=== PATIENT | female | born 1995 | race Caucasian/White ===

== ENCOUNTER → 2024-08-01 | Outpatient (CLI) | payer MEDICAID, SELFPAY ==
--- NOTE | 2024-08-01 09:03 | XR_ITS ---
Examination: Foot, right, 3 views Technique: AP, oblique, lateral views foot, 3 views Date and time of exam: August 01, 2024 0909 hours INDICATIONS: Injury to the foot 2 days ago with persistent pain. FINDINGS: Mild osteopenia No acute fracture No dislocation No foreign body IMPRESSION: No acute fracture
== END | disposition home or self-care (01) ==
PROVIDERS: PCP Family Medicine; Referring Provider Orthopaedic Surgery; Visit Provider Orthopaedic Surgery
DX: S99.921A Unspecified injury of right foot, initial encounter (principal); X58.XXXA Exposure to other specified factors, initial encounter
CPT/HCPCS: 73630

== ENCOUNTER 2024-08-03 21:11 | Emergency (ER) | payer MEDICAID, SELFPAY ==
[2024-08-03 21:12] VITALS: BMI 25.4
[2024-08-03 21:53] VITALS: BP 132/91; PULSE 66; RESP 16; TEMP 36.8; O2SAT 99
--- NOTE | 2024-08-03 22:12 | XR_ITS ---
Examination: CT right foot, without contrast. 2-D sagittal reconstructions. 2-D coronal reconstructions. 3-D reconstructions. Date and time of exam:August 03, 2024 and 4:00 PM Indications: Injury to the foot 2 days ago, foot pain CTDI: vol (mGy):4.80 DLP: (mGycm):130 Technique: Multiple 1.25 mm axial sections of the right foot without intravenous contrast have been obtained. 2-D sagittal and coronal reconstructions have been obtained. 3-D reconstructions have been obtained. Low dose protocols were performed. One or more of the following dose reduction techniques were used; automated exposure control, adjustment of the mA and/or KV according to patient size, use of iterative reconstruction technique. Findings: Distal tibia and distal fibula intact Talus calcaneus navicular and cuneiforms, cuboid intact No Lisfranc tarsometatarsal dislocations Metatarsals digits appear intact Impression: No acute fracture MRI foot without contrast follow-up would best assess for bone contusion, marrow edema, ligamentous, tendon injuries, as clinically warranted
--- NOTE | 2024-08-03 22:19 | PD.EDANKLE ---
Lower Extremity Injury RME/HPI General Chief Complaint: Ankle/Foot Injury Stated Complaint: RIGHT FOOT PAIN Time Seen by Provider: 08/03/24 22:11 Arrival date/time: 08/03/24 21:11 29F with history of asthma presents to ED with R sole pain after she stepped on a toy several days ago. XR done here was normal. Limitations: no limitations Related Data Home Medications ?Medication ?Instructions ?Recorded ?Confirmed prenat.vits,blanca,rlx-[id number]-[id number] 1 tab PO QDAY 02/03/22 02/03/22 Previous Rx's ?Medication ?Instructions ?Recorded albuterol sulfate 90 mcg/actuation 2 puff inhalation Q6HR PRN 08/02/17 aerosol inhaler (Proventil HFA) SHORTNESS OF BREATH OR WHEEZE #1 inh inhalational spacing device #1 ea 03/08/19 (Aerochamber MV spacer) ibuprofen 800 mg tablet 800 mg PO Q8H PRN pain #30 tabs 02/15/22 Allergies Allergy/AdvReac Type Severity Reaction Status Date / Time No Known Allergies Allergy Verified 02/14/22 04:34 Review of Systems Review of Systems Systems Reviewed: All systems reviewed, normal except as documented Constitutional Constitutional: Reports system reviewed and no additional complaints, except as documented, Denies fever(s) and Denies headache(s) ENT Ears, Nose, Mouth, and Throat: Denies disequilibrium and Denies headache(s) Cardiovascular Cardiovascular: Reports system reviewed and no additional complaints, except as documented, Denies chest pain and Denies dyspnea Respiratory Respiratory: Reports system reviewed and no additional complaints, except as documented, Denies cough and Denies dyspnea Gastrointestinal Gastrointestinal: Reports system reviewed and no additional complaints, except as documented, Denies abdominal pain, Denies nausea and Denies vomiting Musculoskeletal Musculoskeletal: Reports as per HPI and Reports arthralgias Neurologic Neurologic: Reports system reviewed and no additional complaints, except as documented, Denies confusion, Denies disequilibrium and Denies headache(s) Psychiatric Psychiatric: Denies confusion Past Medical History Past Medical History NEUROLOGIC: Negative Neurological Disorders CARDIAC: Negative Cardiac Disorders or Congestive Heart Failure RESPIRATORY: Positive Asthma (INHALER LAST USED 1 YEAR AGO.); Negative Chronic Obstructive Pulmonary Disease (COPD) GASTROINTESTINAL: Negative Gastrointestinal Disorders or Hepatitis GENITOURINARY: Negative Genitourinary Disorders or Renal Disease MUSCULOSKELETAL: Negative Musculoskeletal Disorders ENDOCRINE: Negative Endocrine Disorders, Diabetes Mellitus Type 1 or Diabetes Mellitus Type 2 HEMATOLOGIC: Positive Blood Disorders and Anemia OTHER HISTORY: Positive Hospitalization (CHILDBIRTH) and Blood Transfusions; Negative Autoimmune Disease, Down Syndrome, Developmental Delay, Shingles, Falls, MRSA, VRSA, Vancomycin-Resistant Enterococci, Human Immunodeficiency Virus (HIV), Chicken Pox, Measles, Mumps, Rubella (Cam[place]onian Measles), Pertussis, Clostridium Difficile or Cancer Family History FAMILY HISTORY: Positive Family Cardiac Disorders (MATERNAL GF- HEART ILLNESS.) and Family Surgery (MATERNAL GF-HEART SURGERY, MOTHER-HYSTERECTOMY); Negative Family Psychiatric Problems, Family Respiratory Disorders, Family Gastrointestinal Problems, Family Cancer or Family Anesthesia Reaction Surgical History SURGICAL: Positive Tonsillectomy; Negative Neurologic Surgery Social History SMOKING STATUS: Never smoker SECOND HAND EXPOSURE: No ED Exam General Limitations: Present no limitations General appearance: Present alert and in no apparent distress Head Head exam: Present atraumatic Eye Eye exam: Present normal appearance, PERRL and EOMI ENT ENT exam: Present normal exam, normal oropharynx and mucous membranes moist Neck Neck exam: Present normal inspection, full ROM and trachea midline Chest Chest inspection: Present normal inspection and symmetric chest wall rise Respiratory Respiratory exam: Present normal lung sounds bilaterally Cardiovascular Cardiovascular exam: Present regular rate, normal rhythm and normal heart sounds Abdominal Exam Abdominal exam: Present soft and normal bowel sounds Extremities Exam Extremities exam: Present full ROM Expanded Lower Extremity Exam Foot/toe exam: Present full ROM (R sole), tenderness, swelling and ecchymosis Back Exam Back exam: Present normal inspection and full ROM Neurological Exam Neurological exam: Present alert, oriented X3 and CN II-XII intact Psychiatric Psychiatric exam: Present normal affect and normal mood Skin Skin exam: Present warm, dry, intact and normal color Course Quality Measures none Orders Category Date Time Status tea wrap [Splint / Immobilizer] STAT Care 08/03/24 22:15 Active Consult to Orthopedic Stat Cons 08/03/24 23:[address] foot RT wo con Stat Exams 08/03/24 22:12 Completed HYDROcodone*/APAP 5/325 [[place] 5/325] Med 08/03/24 22:12 Discontinued 0.5 tab PO X1 ONE Vital Signs Vital signs: Vital Signs Temperature 98.2 F 08/03/24 21:53 Pulse Rate 66 08/03/24 21:53 Respiratory Rate 16 08/03/24 21:53 Blood Pressure 132/91 H 08/03/24 21:53 Pulse Oximetry (%) 99 08/03/24 21:53 Oxygen Delivery Method Room Air 08/03/24 21:53 O2 at 99% on RA and WNLs Extremity Injury, Lower MDM Narrative MDM Narrative:: 29F with history of asthma presents to ED with R sole pain after she stepped on a toy several days ago. XR done here was normal. Physical exam reveals R sole bruising and swelling around mid-foot. Skin in intact. ROM intact. Patient is afebrile, calm, and alert. CT no acute abnormalities. [place] reduced pain. Dr. Jaffe came to evaluate patient and recommends MRI outpatient. Patient data External records reviewed:: [facility] previous records Clinical information provided by:: patient Social determinants that could affect healthcare access:: none Patient has the following chronic illnesses:: none How is presenting disease/condition affected by chronic disease/condition?: no chronic disease Evaluation data The following diagnostics were reviewed and interpreted by me:: radiology exam(s) Lab and/or radiology exams considered but not ordered:: ordered Interpretation Summary: above Medications / Prescriptions Medications or Prescriptions considered but not ordered:: ordered Medication administrations:: Medication Administration History Discontinued Medications Hydrocodone Bitart/Acetaminophen (Hydrocodone/Apap 5/325 Tablet) 0.5 tab PO X1 ONE Stop: 08/03/24 22:13 Last Admin: 08/03/24 22:30 Dose: 0.5 tab Documented By: above Consultations Consultation(s) initiated? (list below): Yes Diagnosis Extremity Injury, Lower Differential Diagnosis: ankle sprain and strain, acute internal derangement of knee, puncture wound of foot, fracture of toe, ankle fracture and other (traumatic bruising of foot) Most likely diagnosis given after review of the tests above:: traumatic bruising of foot Admission Indicated Admission indicated?: not indicated Admission Request Was there a request for admission?: No Disposition Plan Disposition Plan: Discharge Discharge Attestation Discharge Attestation: The patient and all family members were given an opportunity to ask questions and understood the discharge instructions. Discharge instructions specifically effects, indications for sooner follow up or return to the emergency department, and the expected course of current diagnosis. Patient condition: Stable Discharge Plan Plan Patient Disposition: HOME (Self Care) Disposition Comment: Stable Prescriptions/Referrals Prescriptions/Med Rec: No Action (DME) Aerochamber MV spacer See Dose Instructions .ROUTE .MEDSUPPLY Qty: 1 0RF Dose Instruction: As directed Rx Instructions: As directed albuterol sulfate [Proventil HFA] 6.7 GM HFA aerosol inhaler 2 puff Inhalation Q6HR PRN (Reason: SHORTNESS OF BREATH OR WHEEZE) Qty: 1 0RF prenat.vits,blanca,[id number] Tablet 1 tab PO QDAY ibuprofen 800 mg tablet 800 mg PO Q8H PRN (Reason: pain) Qty: 30 0RF Referrals: Temporary Provider,ED [Primary Care Provider] - In 1 week Problem List Clinical Impression: Traumatic ecchymosis of foot Patient/Caregiver Discharge Instructions Education Materials: ED Foot Contusion Additional Instructions: Please follow-up with PCP within 24-48 hours and return immediately if symptoms worsen. If problem persists, recommend outpatient PT and/or MRI follow-up. In the meantime, rest, use ice/heat, and/or compression. Print Language: Luxembourger Stand Alone Forms: Patient Portal Info Letter MARTY/URI Supervising Physician MARTY/URI Supervising Physician: Dr. Fry
[2024-08-03] MEDS: HYDROcodone/APAP 5/325 TABLET 0.5 TAB PO (22:30)
--- NOTE | 2024-08-03 22:49 | PD.ORTHCON ---
HPI Consult details Reason for consultation narrative: Pain right foot History of present illness: Patient 29-year-old who several days ago stepped on a toy. She does not really remember the event and awakened the next morning with pain and swelling plantar aspect right foot. She was seen in the office and given a prescription for tramadol. The tramadol 1/2 tablet is not effective even when she takes a whole tablet she is quite nauseated. She has been quite active. We did dispense a boot in the office and that has helped. Past Medical History Past Medical History NEUROLOGIC: Negative Neurological Disorders CARDIAC: Negative Cardiac Disorders or Congestive Heart Failure RESPIRATORY: Positive Asthma (INHALER LAST USED 1 YEAR AGO.); Negative Chronic Obstructive Pulmonary Disease (COPD) GASTROINTESTINAL: Negative Gastrointestinal Disorders or Hepatitis GENITOURINARY: Negative Genitourinary Disorders or Renal Disease MUSCULOSKELETAL: Negative Musculoskeletal Disorders ENDOCRINE: Negative Endocrine Disorders, Diabetes Mellitus Type 1 or Diabetes Mellitus Type 2 HEMATOLOGIC: Positive Blood Disorders and Anemia OTHER HISTORY: Positive Hospitalization (CHILDBIRTH) and Blood Transfusions; Negative Autoimmune Disease, Down Syndrome, Developmental Delay, Shingles, Falls, MRSA, VRSA, Vancomycin-Resistant Enterococci, Human Immunodeficiency Virus (HIV), Chicken Pox, Measles, Mumps, Rubella ([place]ian Measles), Pertussis, Clostridium Difficile or Cancer Family History FAMILY HISTORY: Positive Family Cardiac Disorders (MATERNAL GF- HEART ILLNESS.) and Family Surgery (MATERNAL GF-HEART SURGERY, MOTHER-HYSTERECTOMY); Negative Family Psychiatric Problems, Family Respiratory Disorders, Family Gastrointestinal Problems, Family Cancer or Family Anesthesia Reaction Surgical History SURGICAL: Positive Tonsillectomy; Negative Neurologic Surgery Social History SMOKING STATUS: Never smoker SECOND HAND EXPOSURE: No Meds Home Medications and Allergies Home Medications ?Medication ?Instructions ?Recorded ?Confirmed ?Type prenat.vits,blanca,[id number] 1 tab PO QDAY 02/03/22 02/03/22 History Allergies Allergy/AdvReac Type Severity Reaction Status Date / Time No Known Allergies Allergy Verified 02/14/22 04:34 Exam Vital Signs Temp Pulse Resp BP Pulse Ox O2 Del Method 98.2 F 66 16 132/91 H 99 Room Air 08/03/24 21:53 08/03/24 21:53 08/03/24 21:53 08/03/24 21:53 08/03/24 21:53 08/03/24 21:53 Vital signs stable Narrative Exam Physical examination shows slight increased area of ecchymosis. No redness or heat indicative of possible cellulitis. Has some pain with flexion extension right ankle right foot and toes. Good capillary filling noted Sensation intact Assessment & Plan Additional Assessment Additional comments: CT scan was done and there appears to be some swelling in the area of the plantar fascia on the plantar aspect soft tissue. I do not see any fractures. No evidence of osteomyelitis. Plan If she does not get better it would be great to get an MRI scan I think this will be self-limited. Keep it up and elevated. Would recommend prescription for Zofran. Have her follow up with me in office.
== END 2024-08-04 00:19 | disposition home or self-care (01) ==
LOC: SERX 08-04 04:54
PROVIDERS: Emergency Provider Emergency Medicine; PCP Family Medicine
DX: S90.31XA Contusion of right foot, initial encounter (principal); W22.8XXA Striking against or struck by other objects, initial encounter
CPT/HCPCS: 73700; 99284; A9270

== ENCOUNTER 2024-08-04 08:32 | Emergency (ER) | payer MEDICAID, SELFPAY ==
--- NOTE | 2024-08-04 | XR_ITS ---
Examination: MRI right foot, without contrast Date and time of exam: August 18, 2024 1311 hours INDICATIONS: Plantar foot pain post injury 5 days ago Technique: Multiple axial sagittal and coronal images of the right foot have been obtained with the Siemens high-resolution 1.5 [place] MRI scanner. Images obtained include T2-weighted fat-suppressed sagittal sections, TR 3500, TE 46, T2 weighted coronal fat suppressed images, TR 3050, TE 84, T2-weighted transverse fat suppressed images, TR 3260, TE 63, proton density transverse images, TR 4720 TE 46, and T1 weighted coronal images, TR 560, TE 13. Findings: Bone contusion with marrow edema mid and distal aspect proximal phalanx first digit Mild thickening of the Achilles tendon Plantar fascia intact No Lisfranc tarsometatarsal dislocations IMPRESSION: Marrow edema consistent with bone contusion distal aspect proximal phalanx first digit Recommend follow-up coned plain films right first digit
[2024-08-04 09:47] VITALS: BP 122/74; PULSE 60; RESP 16; TEMP 36.7; O2SAT 98; BMI 27.3
--- NOTE | 2024-08-04 10:36 | EDNOTE_ITS ---
<Statement entered by Zoya Quintero MD - 08/05/24 06:45> As co-signing physician, I was present and available for consult prn. I concur with the plan and care as documented by the midlevel provider. Lower Extremity Injury RME/HPI General Chief Complaint: Ankle/Foot Injury Stated Complaint: SENT FOR MRI, RIGHT FOOT PAIN, SEEN LAST NIGHT Time Seen by Provider: 08/04/24 08:41 Arrival date/time: 08/04/24 08:32 RME / HPI RME / HPI Narrative: Patient presents emergency department with complaint of right foot pain. Patient states that 3 days ago she accidentally stepped on a toy causing pain to her right foot. Patient states pain is worse with ambulation. She was seen in the emergency department and a CT scan was done which was unremarkable. She followed up with the orthopedist who recommends MRI if pain persists. She returns the emergency department because of the worsening pain. She endorses tingling to the plantar aspect of her foot shooting up to her toe. Related Data Home Medications ?Medication ?Instructions ?Recorded ?Confirmed prenat.vits,blanca,[id number] 1 tab PO QDAY 02/03/22 02/03/22 Previous Rx's ?Medication ?Instructions ?Recorded albuterol sulfate 90 mcg/actuation 2 puff inhalation Q6HR PRN 08/02/17 aerosol inhaler (Proventil HFA) SHORTNESS OF BREATH OR WHEEZE #1 inh inhalational spacing device #1 ea 03/08/19 (Aerochamber MV spacer) ibuprofen 800 mg tablet 800 mg PO Q8H PRN pain #30 tabs 02/15/22 hydrocodone 5 mg-acetaminophen 325 1 tab PO Q8H PRN pain #15 tabs 08/04/24 mg tablet Allergies Allergy/AdvReac Type Severity Reaction Status Date / Time No Known Allergies Allergy Verified 08/04/24 08:34 Review of Systems Review of Systems Systems Reviewed: All systems reviewed, normal except as documented Constitutional Constitutional: Reports system reviewed and no additional complaints, except as documented Cardiovascular Cardiovascular: Reports system reviewed and no additional complaints, except as documented Respiratory Respiratory: Reports system reviewed and no additional complaints, except as documented Musculoskeletal Musculoskeletal: Reports limited range of motion, Reports radiating pain into limb and Reports tingling Neurologic Neurologic: Reports tingling ED Exam General General appearance: Present alert and in no apparent distress Head Head exam: Present atraumatic and normocephalic ENT ENT exam: Present normal exam and normal oropharynx Respiratory Respiratory exam: Present normal lung sounds bilaterally Cardiovascular Cardiovascular exam: Present regular rate Extremities Exam Extremities exam: Present normal inspection and tenderness; Absent joint swelling or calf tenderness Expanded Lower Extremity Exam Bottom foot image: 2 1. swelling Neurological Exam Neurological exam: Present alert and oriented X3 Psychiatric Psychiatric exam: Present normal affect and normal mood Course Quality Measures none Orders Category Date Time Status MRI Screening NOW Care 08/04/24 10:27 Active MR foot RT wo con Stat Exams 08/04/24 Completed HYDROcodone*/APAP 5/325 [[place] 5/325] Med 08/04/24 10:29 Discontinued 1 tab PO X1 ONE Vital Signs Vital signs: Vital Signs Temperature 98.0 F 08/04/24 09:47 Pulse Rate 60 08/04/24 09:47 Respiratory Rate 16 08/04/24 09:47 Blood Pressure 122/74 08/04/24 09:47 Pulse Oximetry (%) 98 08/04/24 09:47 Oxygen Delivery Method Room Air 08/04/24 09:47 Extremity Injury, Lower MDM Narrative MDM Narrative:: 29-year-old patient presents emergency department with right foot pain status post stepping on a toy [address] was done which was negative for fractures pain persisted and patient followed up with orthopedist who recommended an MRI. MRI in the ED today was negative for fractures. Impression from MRI was bone contusion of the right foot. Patient data External records reviewed:: None Clinical information provided by:: patient Social determinants that could affect healthcare access:: none Patient has the following chronic illnesses:: na How is presenting disease/condition affected by chronic disease/condition?: no chronic disease Evaluation data The following diagnostics were reviewed and interpreted by me:: lab results and radiology exam(s) Lab and/or radiology exams considered but not ordered:: radiology considered and ordered Interpretation Summary: bone contusion Medications / Prescriptions Medications or Prescriptions considered but not ordered:: rx considered and ordered Medication administrations:: Medication Administration History Discontinued Medications Hydrocodone Bitart/Acetaminophen (Hydrocodone/Apap 5/325 Tablet) 1 tab PO X1 ONE Stop: 08/04/24 10:30 Last Admin: 08/04/24 11:48 Dose: 1 tab Documented By: RD per above Consultations Consultation(s) initiated? (list below): No Diagnosis Most likely diagnosis given after review of the tests above:: bone contusion Admission Indicated Admission indicated?: not indicated Admission Request Was there a request for admission?: No Disposition Plan Disposition Plan: Discharge Discharge Attestation Discharge Attestation: The patient and all family members were given an opportunity to ask questions and understood the discharge instructions. Discharge instructions specifically effects, indications for sooner follow up or return to the emergency department, and the expected course of current diagnosis. Patient condition: Stable Discharge Plan Plan Patient Disposition: HOME (Self Care) Prescriptions/Referrals Prescriptions/Med Rec: New hydrocodone-acetaminophen 5-325 mg tablet 1 tab PO Q8H MDD 10 PRN (Reason: pain) Qty: 15 0RF No Action (DME) Aerochamber MV spacer See Dose Instructions .ROUTE .MEDSUPPLY Qty: 1 0RF Dose Instruction: As directed Rx Instructions: As directed albuterol sulfate [Proventil HFA] 6.7 GM HFA aerosol inhaler 2 puff Inhalation Q6HR PRN (Reason: SHORTNESS OF BREATH OR WHEEZE) Qty: 1 0RF prenat.vits,blanca,[id number] Tablet 1 tab PO QDAY ibuprofen 800 mg tablet 800 mg PO Q8H PRN (Reason: pain) Qty: 30 0RF Referrals: Paddy Jaffe MD [Primary Care Provider] - In 1 week Problem List Clinical Impression: Contusion of right foot, subsequent encounter Patient/Caregiver Discharge Instructions Education Materials: Bruises (Contusions), ED Foot Contusion Print Language: Hungarian Stand Alone Forms: Carole Award Info., Patient Portal Info Letter
[2024-08-04] MEDS: HYDROcodone/APAP 5/325 TABLET 1 TAB PO (11:48)
== END 2024-08-04 14:26 | disposition home or self-care (01) ==
PROVIDERS: Emergency Provider Emergency Medicine; PCP Orthopaedic Surgery
DX: S90.31XA Contusion of right foot, initial encounter (principal); W22.8XXA Striking against or struck by other objects, initial encounter
CPT/HCPCS: 73718; 99284; A9270